=== PATIENT | male | born 1985 | race Caucasian/White ===

== ENCOUNTER 2018-05-17 11:31 | Outpatient (CLI) | payer MEDICAID ==
--- NOTE | 2018-05-17 13:34 | XRAY Report ---
Reason: SHORTNESS OF BREATH,CHEST PAIN,UNSPECIFIED DYSPNEA Procedure Date: 05/17/2018 Accession Number: [id number] / [id number] Procedure: XR - Chest 2 View X-Ray CPT Code: 46864 FULL RESULT: EXAM: CHEST RADIOGRAPHY EXAM DATE: 05/17/2018 11:59 AM. CLINICAL HISTORY: Shortness of breath, chest pain, unspecified dyspnea. COMPARISON: Chest 2-view PA/lateral 01/27/2016 9:05 AM. TECHNIQUE: 2 views. FINDINGS: Lungs/Pleura: No focal opacities evident. No pleural effusion. No pneumothorax. Normal volumes. Mediastinum: Heart and mediastinal contours are unremarkable. Other: None. IMPRESSION: No acute cardiopulmonary abnormality. RADIA
== END 2018-05-17 11:32 | disposition home or self-care (01) ==
LOC: DI 11:31
PROVIDERS: ATTEND Physician Assistant
DX: R07.9 Chest pain, unspecified (principal); R06.02 Shortness of breath; R94.31 Abnormal electrocardiogram [ECG] [EKG]
CPT/HCPCS: 71046; 93005

== ENCOUNTER 2018-06-25 16:24 | Emergency (ER) | payer MEDICAID ==
--- NOTE | 2018-06-25 16:30 | ED Physician Documentation ---
PD HPI ANIMAL BITE - Stated complaint Stated Complaint: DOG BITE - History obtained from History obtained from: Patient - History of Present Illness Location of injury(ies): Right hand Details of the event: Dog, Pet animal, Well appearing, Provoked (the dog got anxious when young child started playing near it, and the dog bit the davonte leg. 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) Timing - details: Abrupt onset Worsened by: Palpating Associated symptoms: No: Weakness, Numbness, Swelling Contributing factors: No: Immunocompromised, Asplenic, Anticoagulated Similar symptoms before: Has not had sx before Recently seen: Not recently seen Review of Systems Neurologic: denies: Focal weakness, Numbness PD PAST MEDICAL HISTORY - Past Medical History Cardiovascular: None Endocrine/Autoimmune: None - Present Medications Home Medications: Ambulatory Orders Medication Instructions Recorded Confirmed Amox/Clav 875/125 [Augmentin] 1 each PO Q12H #10 tablet 06/25/18 - Allergies Allergies/Adverse Reactions: Allergies Allergy/AdvReac Type Severity Reaction Status Date / Time No Known Drug Allergies Allergy Verified 06/25/18 16:40 PD ED PE NORMAL - Vitals Vital signs reviewed: Yes - General General: Alert and oriented X 3, No acute distress, Well developed/nourished - Derm Derm: Normal color, Warm and dry - Extremities Extremities: Other (right hand with 1.5 cm lac palmar thenar area near base of thumb. No FB. strong ROM of the thumb without pain of muscles. Normal sensation of the thumb and index finger. ) - Neuro Neuro: No motor deficit, No sensory deficit Results - Vitals Vitals: Vital Signs - 24 hr 06/25/18 16:37 Temperature 36.3 C L Heart Rate 89 Respiratory 20 Rate Blood Pressure 149/96 H O2 Saturation 98 Oxygen O2 Source Room air PD MEDICAL DECISION MAKING - ED course Complexity details: considered differential (wound irrigated well by Tech. Offered local anesth but patient declined. It is not open enough to need sutures and discussed less infection rate with leaving it unsutured. He is okay with that. ), d/w patient Departure - Departure Disposition: 01 Home, Self Care Clinical Impression: Dog bite of right hand Qualifiers: Encounter type: initial encounter Qualified Code(s): S61.451A - Open bite of right hand, initial encounter Condition: Stable Record reviewed to determine appropriate education?: Yes Instructions: ED Bite Dog Follow-Up: Emely Sandhu PA [Primary Care Provider] - Prescriptions: Amox/Clav 875/125 [Augmentin] 1 each PO Q12H #10 tablet Comments: Clean the wound twice per day with soap and water and apply ointment. Tylenol or ibuprofen if needed for pains. Recheck if signs of infection. Augmentin twice daily for 5 days to reduce the chance of infection. This should heal in adequately without needing sutures. Discharge Date/Time: 06/25/18 17:55
[2018-06-25 16:40] VITALS: BP 149/96
[2018-06-25] MEDS ORDERED: AMOX/CLAV 875 MG/125 MG TABLET PO STA (17:45)
[2018-06-25] MEDS ORDERED: IBUPROFEN 600 MG TABLET PO STA (17:45)
== END 2018-06-25 17:55 | disposition home or self-care (01) ==
LOC: ED 16:24
DX: S61.451A Open bite of right hand, initial encounter (principal); W54.0XXA Bitten by dog, initial encounter; Y93.89 Activity, other specified
CPT/HCPCS: 99283; A9270

== ENCOUNTER 2020-07-18 12:46 | Outpatient (CLI) | payer MEDICAID ==
--- NOTE | 2020-07-18 14:20 | XRAY Report ---
PROCEDURE: Foot 3 View RT INDICATIONS: PAIN IN FOOT TECHNIQUE: 3 views of the foot were acquired. COMPARISON: None FINDINGS: Bones: No fractures or dislocations. No suspicious bony lesions. Soft tissues: No tibiotalar joint effusion. Achilles tendon appears normal. IMPRESSION: Normal right foot radiographs. Reviewed by: Nawaf Colindres MD on 07/18/2020 2:19 PM [facility] Approved by: Nawaf Colindres MD on 07/18/2020 2:19 PM [facility] Station ID: [id number]
== END 2020-07-18 12:47 | disposition home or self-care (01) ==
LOC: DI 12:46
PROVIDERS: ATTEND Registered Nurse
DX: M79.671 Pain in right foot (principal)